=== PATIENT | male | born 1960 | race Caucasian/White ===

== ENCOUNTER 2016-12-23 07:02 | Emergency (ER) | payer OTHER ==
[2016-12-23 07:14] VITALS: TEMP 98.1; BMI 21.9
[2016-12-23] MEDS ORDERED: CYCLOBENZAPRINE HCL 10 MG TABLET (FP) PO ONE (07:49)
[2016-12-23] MEDS ORDERED: KETOROLAC TROMETHAMINE 60 MG/2 ML VIAL IM ONE (07:49)
[2016-12-23] MEDS ORDERED: KETOROLAC TROMETHAMINE 60 MG/2 ML VIAL ONE (07:54)
[2016-12-23] MEDS ORDERED: CYCLOBENZAPRINE HCL 10 MG TABLET (FP) ONE ×2 (07:55→08:03)
--- NOTE | 2016-12-23 07:58 | PDOC ---
History of Present Illness - General History Source: Patient - History of Present Illness Occurred: reports: last week Severity: reports: severe Pain Location: reports: back, lower extremity <Monico Alfaro - Last Filed: 12/23/16 08:38> <Moon Lopez - Last Filed: 12/23/16 12:06> - General Chief Complaint: Pain Stated Complaint: PAIN IN LEFT LEG Time Seen by Provider: 12/23/16 07:35 Past History - Past Medical History Asthma: Yes - Psycho/Social/Smoking Cessation Hx Suicidal Ideation: No Smoking History: Current some day smoker Have you smoked in the past 12 months: Yes Information on smoking cessation initiated: No <Monico Alfaro - Last Filed: 12/23/16 08:38> <Moon Lopez - Last Filed: 12/23/16 12:06> - Past Medical History Allergies/Adverse Reactions: Allergies Allergy/AdvReac Type Severity Reaction Status Date / Time No Known Allergies Allergy Verified 12/23/16 07:03 Home Medications: Ambulatory Orders Albuterol Sulfate Inhaler - [Ventolin Hfa Inhaler -] 1 - 2 inh PO QID PRN Cyclobenzaprine HCl [Flexeril 10 mg] 10 mg PO TID PRN #9 tablet 12/23/16 Fluoxetine HCl [Prozac -] 20 mg PO DAILY 12/23/16 Ibuprofen [Motrin -] 800 mg PO Q6H #30 tablet 12/23/16 Montelukast Na [Singulair -] 10 mg PO HS 12/23/16 Zolpidem Tartrate [Ambien] 10 mg PO HS 12/23/16 Review of Systems - Review of Systems Constitutional: No: Chills, Fever ABD/GI: No: Nausea, Vomiting : No: Dysuria Musculoskeletal: Yes: Back Pain Neurological: Yes: Numbness. No: Tingling, Weakness <Monico Alfaro - Last Filed: 12/23/16 08:38> *Physical Exam - Vital Signs Last Vital Signs Temp Pulse Resp BP Pulse Ox 98.1 F 76 19 129/63 99 12/23/16 07:04 12/23/16 07:04 12/23/16 07:04 12/23/16 07:04 12/23/16 07:04 - Physical Exam General Appearance: Yes: Appropriately Dressed, Mild Distress HEENT: positive: Normal Voice Neck: positive: Supple Respiratory/Chest: negative: Respiratory Distress Gastrointestinal/Abdominal: positive: Soft. negative: Tender Musculoskeletal: positive: Normal Inspection, Vertebral Tenderness (significant ttp to lateral aspect of L gluteus, no SLR, LE strenght intact b/l, able to bear weight in ED). negative: CVA Tenderness Extremity: positive: Normal Inspection Integumentary: positive: Dry, Warm Neurologic: positive: Fully Oriented, Alert, Normal Mood/Affect, Motor Strength 5/5 <Monico Alfaro - Last Filed: 12/23/16 08:38> - Vital Signs Last Vital Signs Temp Pulse Resp BP Pulse Ox 98.1 F 71 16 122/65 98 12/23/16 07:04 12/23/16 09:26 12/23/16 09:26 12/23/16 09:26 12/23/16 09:26 <Moon Lopez - Last Filed: 12/23/16 12:06> ED Treatment Course - Medications Given in the ED: ED Medications Discontinued Medications Generic Name Dose Route Start Last Admin Trade Name Freq PRN Reason Stop Dose Admin Cyclobenzaprine HCl 10 mg 12/23/16 07:49 12/23/16 08:05 Flexeril - PO 12/23/16 07:50 10 mg ONCE ONE Administration Ketorolac Tromethamine 60 mg 12/23/16 07:49 12/23/16 08:05 Toradol Injection - IM 12/23/16 07:50 60 mg ONCE ONE Administration <Moon Lopez - Last Filed: 12/23/16 12:06> Medical Decision Making - Medical Decision Making 12/23/16 07:55 56-year-old male history of asthma, anxiety, chronic lower back pain, currently on disability, here with left lower back pain. Patient reports left gluteal pain radiating to left foot 1 week with numbness of leg. Unable to describe pain, but states it is "terrible" and constant and sometimes worse since with weight bearing. No lower extremity weakness, saddle anesthesia or bladder or bowel incontinence. No recent trauma or obvious inciting agents. Was seen by his PMD 4 days ago and given 600 mg of Motrin which does not help. As per patient has had no prior imaging of back in the past See exam Possibly sciatica No e/o cauda equina at this time -pain control -reassess 12/23/16 08:46 Pt reports significant improvement w/ meds. Will dc w/ pain control and encourage PMD f/u for possible MRI <Monico Alfaro - Last Filed: 12/23/16 08:38> *DC/Admit/Observation/Transfer <Monico Alfaro - Last Filed: 12/23/16 08:38> - Attestations Physician Attestion: I reviewed the case with the mid-level practitioner and agree with the mid- level practitioner's assessment, diagnosis and disposition. <Moon Lopez - Last Filed: 12/23/16 12:06> Diagnosis at time of Disposition: Back pain Qualifiers: Back pain location: low back pain Chronicity: acute Back pain laterality: left Sciatica presence: with sciatica Sciatica laterality: sciatica of left side Qualified Code(s): M54.42 - Lumbago with sciatica, left side - Discharge Dispostion Disposition: HOME Condition at time of disposition: Improved - Prescriptions Prescriptions: Cyclobenzaprine HCl [Flexeril 10 mg] 10 mg PO TID PRN #9 tablet PRN Reason: Back Pain Ibuprofen [Motrin -] 800 mg PO Q6H #30 tablet - Referrals Referrals: Jb Patterson MD [Primary Care Provider] - - Patient Instructions Printed Discharge Instructions: Sciatica Additional Instructions: [place] los medicamentos segn las indicaciones y realice el seguimiento con iglesias PMD en 1 semana para manuel posible RM de la espalda baja Print Language: YI
[2016-12-23 09:27] VITALS: BP 122/65; PULSE 71
== END 2016-12-23 09:27 | disposition home or self-care (01) ==
LOC: JER 07:02
PROC: 3E0233Z Introduction of Anti-inflammatory into Muscle, Percutaneous Approach (ICD-10-PCS; principal; 2016-12-23)
DX: M54.42 Lumbago with sciatica, left side (principal); G89.29 Other chronic pain; F41.9 Anxiety disorder, unspecified; J45.909 Unspecified asthma, uncomplicated
CPT/HCPCS: 99282-25

== ENCOUNTER → 2016-12-26 | Emergency (ER) | payer OTHER ==
[~2016-12-26] MED LIST: KETOROLAC TROMETHAMINE 30 MG/1 ML VIAL IM ONE; KETOROLAC TROMETHAMINE 60 MG/2 ML VIAL IM ONE; KETOROLAC TROMETHAMINE 60 MG/2 ML VIAL ONE; diazePAM 5 MG TABLET ONE; diazePAM 5 MG TABLET PO ONE
[2016-12-26 07:06] VITALS: BP 113/77; PULSE 78; TEMP 98; BMI 21.9
--- NOTE | 2016-12-26 07:17 | PDOC ---
"History of Present Illness <FelisaMichelle zuluaga - Last Filed: 12/26/16 08:56> - History of Present Illness Initial Comments: 56 year old male with history of asthma, chronic back pain, and on disability presenting with left gluteal pain and left calf pain for one month duration. He was seen by LES Patterson on 12/23/16 and given a Toradol shot with good results and told to follow up with his PMD Jb Patterson after being given a prescription of cyclobenzarpine. His cyclobenzaprine and ibuprofen have not helped and he is still having issues with pain in his buttox and left calf with difficulty ambulating. He denies any inciting trauma or speicific event that caused the pain. Denies bowel or bladder incontinence or saddle paresthesias. Denies fevers , chills, nausea, vomiting, diarrhea, constipation, cough, chest pain, or other symptoms. 12/26/16 07:58 12/26/16 11:10 <Madi Koch - Last Filed: 12/26/16 11:15> - General Chief Complaint: Pain Stated Complaint: PAIN Time Seen by Provider: 12/26/16 07:16 Past History <Michelle Roberto - Last Filed: 12/26/16 08:56> - Past Medical History Asthma: Yes Psychiatric Problems: Yes (Depression) - Psycho/Social/Smoking Cessation Hx Suicidal Ideation: No Smoking History: Never smoked Have you smoked in the past 12 months: No Information on smoking cessation initiated: No Hx Alcohol Use: No Drug/Substance Use Hx: No Substance Use Type: None <Madi Koch - Last Filed: 12/26/16 11:15> - Past Medical History Allergies/Adverse Reactions: Allergies Allergy/AdvReac Type Severity Reaction Status Date / Time No Known Allergies Allergy Verified 12/26/16 07:44 Home Medications: Ambulatory Orders Cyclobenzaprine HCl [Flexeril 10 mg] 10 mg PO TID PRN #9 tablet 12/23/16 Diazepam [Valium] 5 mg PO BID PRN #14 tablet MDD 2 tabs daily 12/26/16 Review of Systems - Review of Systems Constitutional: No: Chills, Diaphoresis, Fever Respiratory: No: Cough Cardiac (ROS): No: Chest Pain, Irregular Heart Rate ABD/GI: No: Constipated, Diarrhea, Nausea, Vomiting Neurological: Yes: Paresthesia. No: Headache, Numbness <AugustJuanmoraima - Last Filed: 12/26/16 11:15> *Physical Exam - Vital Signs Last Vital Signs Temp Pulse Resp BP Pulse Ox 98.0 F 78 18 113/77 96 12/26/16 07:03 12/26/16 07:03 12/26/16 07:03 12/26/16 07:03 12/26/16 07:03 <Michlele Roberto - Last Filed: 12/26/16 08:56> - Vital Signs Last Vital Signs Temp Pulse Resp BP Pulse Ox 98.0 F 78 18 113/77 96 12/26/16 07:03 12/26/16 07:03 12/26/16 07:03 12/26/16 07:03 12/26/16 07:03 - Physical Exam General Appearance: Yes: Nourished, Appropriately Dressed. No: Apparent Distress HEENT: positive: EOMI, AILEEN, Normal Voice Neck: positive: Trachea midline, Normal Thyroid, Supple. negative: Tender, Rigid Respiratory/Chest: positive: Lungs Clear, Normal Breath Sounds. negative: Chest Tender, Respiratory Distress Cardiovascular: positive: Regular Rhythm, Regular Rate, S1, S2. negative: Edema , Murmur Gastrointestinal/Abdominal: positive: Normal Bowel Sounds, Flat, Soft. negative : Tender Musculoskeletal: positive: Decreased Range of Motion. negative: Normal Inspection (Tenderness to palpation over the lateral aspect of his left gluteus with some tenderness to palpation in his left calf. Paresthesias and mild decreased sensation over left calf. 3/5 strength with flexion of left hip, left foot plantar flexion, and left foot dorsiflexion. No TTP over thoracic, lumbar, or sacral spine.) Integumentary: positive: Normal Color, Dry, Warm Neurologic: positive: Alert, Normal Mood/Affect. negative: Motor Strength 5/5 <Madi Koch - Last Filed: 12/26/16 11:15> ED Treatment Course - Medications Given in the ED: ED Medications Discontinued Medications Generic Name Dose Route Start Last Admin Trade Name Freq PRN Reason Stop Dose Admin Diazepam 5 mg 12/26/16 07:54 12/26/16 08:26 Valium - PO 12/26/16 07:55 5 mg ONCE ONE Administration Ketorolac Tromethamine 30 mg 12/26/16 07:50 12/26/16 08:00 Toradol Injection - IM 12/26/16 07:51 Not Given ONCE ONE Ketorolac Tromethamine 60 mg 12/26/16 07:53 12/26/16 08:25 Toradol Injection - IM 12/26/16 07:54 60 mg ONCE ONE Administration <Michelle Roberto - Last Filed: 12/26/16 08:56> Medical Decision Making - Medical Decision Making 12/26/16 08:56 Search Terms: Amado Hernández, 1960 Search Date: 12/26/2016 08:56:17 AM The Drug Utilization Report below displays all of the controlled substance prescriptions, if any, that your patient has filled in the last twelve months. The information displayed on this report is compiled from pharmacy submissions to the Department, and accurately reflects the information as submitted by the pharmacies. This report was requested by: Michelle Roberto | Reference #: [id number] You have not added a OTT[facility]IEL number. Keeping your OTT[facility]IEL number(s) up to date on the My OTT[facility] Numbers page will enable the separation of your prescriptions from others ' in the search results. Others' Prescriptions Patient Name: Amado Hernández Date: 1960 Address: [address] [place] [address] [address] [place] [address] Sex: Male Rx Written Rx Dispensed Drug Quantity Days Supply Prescriber Name 12/20/2016 12/21/2016 zolpidem tartrate 10 mg tablet 30 30 Dario Geiger MD 11/22/2016 11/23/2016 zolpidem tartrate 10 mg tablet 30 30 Dario Geiger MD 10/25/2016 10/28/2016 zolpidem tartrate 10 mg tablet 30 30 Dario Geiger MD 09/27/2016 09/28/2016 zolpidem tartrate 10 mg tablet 30 30 Dario Geiger MD 06/07/2016 09/10/2016 tramadol hcl 50 mg tablet 60 20 Ishmael Patterson) 06/07/2016 08/11/2016 tramadol hcl 50 mg tablet 60 20 Ishmael Patterson () 08/09/2016 08/11/2016 zolpidem tartrate 10 mg tablet 30 30 Dario Geiger MD 06/07/2016 07/15/2016 tramadol hcl 50 mg tablet 60 20 Ishmael Patterson () 07/13/2016 07/15/2016 zolpidem tartrate 10 mg tablet 30 30 Dario Geiger MD 06/07/2016 06/20/2016 tramadol hcl 50 mg tablet 60 20 Ishmael Patterson () 06/13/2016 06/20/2016 zolpidem tartrate 10 mg tablet 30 30 Dario Geiger MD 05/03/2016 05/24/2016 tramadol hcl 50 mg tablet 60 20 Ishmael Patterson () 05/23/2016 05/24/2016 zolpidem tartrate 10 mg tablet 30 30 Dario Geiger MD 05/03/2016 05/03/2016 tramadol hcl 50 mg tablet 60 20 Ishmael Patterson () 04/19/2016 04/28/2016 zolpidem tartrate 10 mg tablet 30 30 Dario Geiger MD 03/23/2016 03/24/2016 zolpidem tartrate 10 mg tablet 30 30 Dario Geiger MD 02/23/2016 02/23/2016 zolpidem tartrate 10 mg tablet 30 30 Dario Geiger MD 01/12/2016 01/14/2016 zolpidem tartrate 10 mg tablet 30 30 RetiDario sandoval MD <Michelle Roberto - Last Filed: 12/26/16 08:56> - Medical Decision Making 56 year old male with with PMH of chronic back pain, asthma, on disability with left buttox pain and left lower extremity weakness most concerning for sciatica. He was seen a few days prior in the ED by LES Alfaro and was sent home with ibuprofen and cyclobenzaprine which have not helped his symptoms. He also has not followed up with Dr. Patterson for his evaluation for MRI. We administered 60 IM of Toradol and 5 of Valium with improvement in pain and lower extremity weakness. He was originally a 3+ on the left lower extremity with hip flexion, dorsiflexion, and plantar flexion but is no a 4+ with the same movements. Patient can go home with ibuprofen and Valium with follow up this week with Dr. Patterson as long as he stays pain free on third evaluation. 12/26/16 09:15 Patient complaining of pain and with high suspicion for a muscular strain/ spasm causing this sciatic distribution pain, a heat pack was applied with good relief of hip pain and slightly recovered ability to ambulate without too much difficulty. He will follow up with Dr. Jb Patterson this week for further evaluation and potential MRI. 12/26/16 11:10 <Madi Koch - Last Filed: 12/26/16 11:15> *DC/Admit/Observation/Transfer <Michelle Roberto - Last Filed: 12/26/16 08:56> - Discharge Dispostion Admit: No - Transfer to Acute Care Facility Transfer comment: 12/26/16 11:10 I, Dr. Madi Koch, attest that this document has been prepared under my direction and personally reviewed by me in its entirety. I further attest, that it accurately reflects all work, treatment, procedures and medical decision -making performed by me. - Attestations Physician Attestion: I, Dr. Madi Koch, attest that this document has been prepared under my direction and personally reviewed by me in its entirety. I further attest, that it accurately reflects all work, treatment, procedures and medical decision -making performed by me. 12/26/16 11:15 <Madi Koch - Last Filed: 12/26/16 11:15> Diagnosis at time of Disposition: Buttock pain - Discharge Dispostion Disposition: HOME - Prescriptions Prescriptions: Diazepam [Valium] 5 mg PO BID PRN #14 tablet MDD 2 tabs daily PRN Reason: Back Pain - Referrals Referrals: Jb Patterson MD [Staff Physician] - - Patient Instructions Printed Discharge Instructions: DI for Back Pain With Sciatica Additional Instructions: Te vimos por dolor de cadera que probablemente se debe a que tus msculos de la cadera izquierda estn ms apretados de lo que deberan ser. Sin embargo, podr salazar necesitar manuel resonancia magntica de iglesias espalda. Usted debe kathy a iglesias m dico de atencin primaria, el Dr. Patterson y discutir la obtencin de manuel resonancia magntica para el estudio adicional. Hasta que usted lo kemal usted debe nitish el valium segn lo prescrito y utilizar paquetes calientes y estirar iglesias cadera. Vuelva por favor si usted pierde control de obi intestinos, vejiga, o siente entumecimiento u hormigueo en obi genitales. Print Language: GREENLANDIC"
[2016-12-26 09:35] LABS: PH,URINE 6.5 (5.0-8.0); URINE APPEARANCE CLEAR; URINE BILIRUBIN NEGATIVE (NEGATIVE); URINE BLOOD NEGATIVE (NEGATIVE); URINE COLOR LT. YELLOW; URINE GLUCOSE (UA) NEGATIVE (NEGATIVE); URINE KETONE NEGATIVE (NEGATIVE); URINE LEUK ESTERASE NEGATIVE (NEGATIVE); URINE NITRITE NEGATIVE (NEGATIVE); URINE PROTEIN NEGATIVE (NEGATIVE); URINE UROBILINOGEN 0.2 mg/dL (0.2-1.0)
--- NOTE | 2016-12-26 09:47 | PDOC ---
Attending Attestation - Resident Resident Name: Madi Koch - ED Attending Attestation I have performed the following: I have examined & evaluated the patient, The case was reviewed & discussed with the resident, I agree w/resident's findings & plan, Exceptions are as noted - HPI HPI: 12/26/16 09:45 56 yo M with h/o back pain x one month, here with worseng pain, buttlock radiating down left leg. no new bowel or bladder incont, no f/c no weakness. no new numbness. no f/c . no injury. pain worse with certain movement. on exam awake alert lungs clear heart RRR no m/r/g. abd soft NT ND. ext wwp. 5/ 5 bilat lower ext. sensation intact, no midline spinal tendenrss. plan nsaids, muscle relaxer, reassess. donn outpt followup with dr. sanchez, pt 12/26/16 09:47 12/26/16 09:47 - Physicial Exam PE: 12/26/16 09:47 on exam awake alert lungs clear heart RRR no m/r/g. abd soft NT ND. ext wwp. 5/ 5 bilat lower ext. sensation intact, no midline spinal tendenrss. - Medical Decision Making 12/26/16 09:47 plan nsaids, muscle relaxer, reassess. donn outpt followup with dr. sanchez, pt 12/26/16 10:58 pt feeling improved. dc home given rx for valium. and dc home.
== END | disposition home or self-care (01) ==
LOC: JER 06:45
PROC: 3E0233Z Introduction of Anti-inflammatory into Muscle, Percutaneous Approach (ICD-10-PCS; principal; 2016-12-26)
DX: M79.1 Myalgia (principal); G89.29 Other chronic pain; J45.909 Unspecified asthma, uncomplicated; F32.9 Major depressive disorder, single episode, unspecified
CPT/HCPCS: 81003; 99283-25

== ENCOUNTER 2017-03-03 09:32 | Day surgery (SDC) | payer OTHER ==
[2017-03-02 17:59] VITALS: BMI 20.3
[2017-03-03] MEDS ORDERED: BETAMET ACET/BETAMET NA PH 30 MG/5 ML VIAL ONE (09:38)
[2017-03-03] MEDS ORDERED: BUPIVACAINE HCL/PF 0.25% (2.5MG/ML) 10 ML VIAL ONE (09:38)
[2017-03-03] MEDS ORDERED: LIDOCAINE HCL 1%, 10 MG/ML (20ML VIAL) ONE (09:38)
[2017-03-03 09:56] VITALS: TEMP 97.7
[2017-03-03] MEDS ORDERED: PROPOFOL 20 ML ONE (11:52)
[2017-03-03] MEDS ORDERED: LIDOCAINE HCL/PF 2% SDV 5ML VIAL ONE (11:52)
[2017-03-03] MEDS ORDERED: KETOROLAC TROMETHAMINE 30 MG/1 ML VIAL ONE (11:52)
[2017-03-03] MEDS ORDERED: LIDOCAINE HCL 1%, 10 MG/ML (50 mL VIAL) IJ ONE ×2 (11:56→11:59)
[2017-03-03] MEDS ORDERED: IOHEXOL 180 MG/1 ML ML IJ ONE ×2 (11:56→11:59)
[2017-03-03] MEDS ORDERED: BUPIVACAINE HCL/PF 0.25% (2.5MG/ML) 10 ML VIAL IJ ONE ×2 (11:56→11:59)
[2017-03-03] MEDS ORDERED: BETAMET ACET/BETAMET NA PH 30 MG/5 ML VIAL IJ ONE ×2 (11:56→11:59)
--- NOTE | 2017-03-03 12:44 | PROC ---
Procedure Note Procedure: Date: 03/03/2017 : 1960 Age: XX Year(s) Sex: Male Name of the patient: Amado Hernández Preoperative Diagnosis:Low back pain and lumbar radiculopathy on Left Postoperative Diagnosis:Same Procedure Performed: Lumbar Epidural Steroid Injection (LESI) on Left L4-5 with dye under Fluoroscopy Anesthesia: Local / MAC Anesthesiologist: Procedure: I discussed with the patient in detail about the risks, benefits, and alternatives to treatment not only limited to infection, headache, numbness , weakness, and injury to nerves, blood vessels and muscles. The patient understood, agreed and signed the written consent. The patient was placed in the prone position with the head, abdomen and legs supported with the pillows. The lumbosacral area was prepped and draped with Betadine times three in a sterile fashion. Lumbar vertebrae were identified under the C-arm. At L4-5 level on the Left side, 3 ml of 1 % Lidocaine was infiltrated into the skin and subcutaneous tissue. A 3 inch, #20 gauge Tuohy needle was advanced to the epidural space with loss of resistance technique under fluoroscopic guidance. Aspiration was negative for cerebrospinal fluid and blood. 2ml of Omnipaque ( radio-opaque dye) was injected to confirm the tip of the needle into epidural space and spread of dye. There was no CSF or vascular spread. The spread of dye was noted cranially and caudally on epidurogram. Aspiration was done again which was negative. A solution of 2.5 ml of Celestone 2.5 ml of 0.25% Marcaine and a total of 5 ml was injected slowly. While Tuohy needle was withdrawn 2.0 ml of 1 % Lidocaine was infiltrated. Bleeding was checked. Betadine was wiped off. A sterile bandage was placed. The patient tolerated the procedure well. There were no immediate complications. The patient was transferred to the recovery room. The patient was observed for some time and discharged as per ASU criteria. The patient was told to apply ice at the injection site. Follow up appointment was given and also call my office at [phone]. If there is any problem, call my office or report to Emergency Room. Nathen Funes M.D.
[2017-03-03 13:14] VITALS: BP 147/71; PULSE 68
== END 2017-03-03 13:14 | disposition home or self-care (01) ==
LOC: JASU-SURG 09:32
PROVIDERS: ATTEND Physical Medicine & Rehabilitation
PROC: 3E0S33Z Introduction of Anti-inflammatory into Epidural Space, Percutaneous Approach (ICD-10-PCS; 2017-03-03)
PROC: B01BYZZ Fluoroscopy of Spinal Cord using Other Contrast (ICD-10-PCS; 2017-03-03)
PROC: 3E0S3BZ Introduction of Anesthetic Agent into Epidural Space, Percutaneous Approach (ICD-10-PCS; principal; 2017-03-03 11:30)
DX: M54.16 Radiculopathy, lumbar region (principal); M54.5 Low back pain
CPT/HCPCS: 76000-TC